=== PATIENT | female | born 1950 | race Caucasian/White ===

== ENCOUNTER 2021-04-26 05:55 | Emergency (ER) | payer MEDICARE, OTHER ==
[~2021-04-26] VITALS: Ht 160 cm; Wt 80.0 kg
[2021-04-26] MEDS ORDERED: DIAZEPAM 5 MG/ML, 2ML IVPush ONE (06:00)
[2021-04-26] MEDS ORDERED: KETOROLAC 30 MG/1 ML IVPush ONE (06:00)
[2021-04-26] MEDS ORDERED: SODIUM CHLORIDE FLUSH 10ML SYR IVF ONE (06:00)
[2021-04-26] MEDS ORDERED: MORPHINE SULFATE 4 MG/ML, 1ML IVPush PRN (06:00)
--- NOTE | 2021-04-26 06:02 | NUR ---
pt [place] she is staying with her and had a mechanical GLF over a step around 0015. pt reports immediate pain after fall and tried to wait it out at hotel with no relief. pt 10 pain level on ems arrival, given 100mcg fentanyl and 2 versed enroute. pt changed into gown. Patient is resting comfortably in bed. Bed in lowest, rails engaged, call light on lap. Provided warm blankets for comfort. placed on 2L NC for SPO2 support at this time. NING.
[2021-04-26] MEDS ORDERED: KETOROLAC 30 MG/1 ML ONE (06:10)
[2021-04-26] MEDS ORDERED: DIAZEPAM 5 MG/ML, 2ML ONE (06:10)
--- NOTE | 2021-04-26 06:33 | NUR ---
PT MEDICATED PER MAR FOR PAIN, NAD, RESTING ON GURNEY, NO CHANGES IN CONDITION AT THIS TIME. AT , [facility]. BED IN [facility], RAILS ENGAGED, CALL LIGHT ON LAP. WAITING FOR RAD READ.
--- NOTE | 2021-04-26 06:55 | NUR ---
BEDSIDE REPORT TO SANDRINE RN, PT CARE TRANSFERRED AT THIS TIME
--- NOTE | 2021-04-26 06:58 | NUR ---
TOOK REPORT FROM SONAM GARSIA RN, ASSUME CARE AT THIS TIME.
--- NOTE | 2021-04-26 07:09 | NUR ---
PT CALM IN ROOM WITH CONT SPO2 BP Q 30 MIN, PHAM RAILS UPX2. PT REPORTS THAT HER PAIN IS BETTER, 2/10.
[2021-04-26] MEDS ORDERED: HYDROcodone/APAP 5/325 TABLET ONE (09:44)
[2021-04-26 09:49] VITALS: BP 124/74
[2021-04-26] MEDS ORDERED: HYDROcodone/APAP 5/325 TABLET PO ONE (10:00)
== END 2021-04-26 09:51 | disposition home or self-care (01) ==
LOC: ED 07:19
DX: S32.010A Wedge compression fracture of first lumbar vertebra, initial encounter for closed fracture (principal); W01.0XXA Fall on same level from slipping, tripping and stumbling without subsequent striking against object, initial encounter; Y93.89 Activity, other specified; Y92.009 Unspecified place in unspecified non-institutional (private) residence as the place of occurrence of the external cause; Y99.8 Other external cause status
CPT/HCPCS: 72072; 72110; 72131; 96374; 96375; 99284; J1885; J3360; J7512